=== PATIENT | female | born 1965 | race Caucasian/White ===

== ENCOUNTER 2018-04-21 09:34 | Inpatient (IN) ==
[2018-04-21 10:14] LABS: BASO# 0.02 X1000 (0.0-0.2); BASO% 0.3 % (0.0-0.8); EOS# 0.07 X1000 (0.0-0.7); EOS% 1.1 % (0.0-10.0); HEMATOCRIT 45.3 % (37.0-47.0); HEMOGLOBIN 15.1 g/dL (12.0-16.0); LYMPH# 1.91 X1000 (1.2-3.4); LYMPH% 29.3 % (20.5-51.1); MCH 32.1 PG (27-31); MCHC 33.3 g/dL (33-37); MCV 96.4 FL (81-99); MONO# 0.47 X1000 (0.11-0.59); MONO% 7.2 % (1.7-9.3); MPV 10.4 FL (7.4-10.4); NEUT# 4.05 X1000 (1.4-6.5); NEUT% 62.1 % (42.2-75.2); PLT 237 X1000 (130-400); RDW 12.6 % (11.5-14.5); WBC 6.52 X1000 (4.8-10.8)
[2018-04-21 10:18] LABS: URINE SOURCE CLEAN CATCH
[2018-04-21 10:19] LABS: BILIRUBIN URINE NEGATIVE (NEGATIVE); BLOOD URINE TRACE (NEGATIVE); COLOR STRAW; GLUCOSE URINE NEGATIVE (NEGATIVE); KETONE URINE NEGATIVE (NEGATIVE); LEUKOCYTES URINE NEGATIVE (NEGATIVE); NITRITE URINE NEGATIVE (NEGATIVE); PROTEIN URINE NEGATIVE (NEGATIVE); TURBIDITY URINE CLEAR (CLEAR); UROBILINOGEN URINE NORMAL (NORMAL)
[2018-04-21 10:27] LABS: UR EPITHELIAL CELLS <10 /HPF (<10); URINE BACTERIA NEGATIVE /HPF; URINE RBC <10 /HPF (<10); URINE WBC <10 /HPF (<10)
[2018-04-21 10:49] LABS: AGAP 4; ALB/GLOB RATIO 1.7; ALBUMIN 4.7 g/dL (3.5-5.0); ALKALINE PHOSPHATASE 84 U/L (32-104); BUN 18 mg/dL (8-22); CALCIUM 10.5 mg/dL (8.8-10.2); CHLORIDE 101 mmol/L (98-107); COSMO 281; CREATININE 0.8 mg/dL (0.5-0.9); ESTIMATED GFR > 60; GLUCOSE 99 mg/dL (70-104); GOT 30 U/L (10-30); GPT 23 U/L (10-36); POTASSIUM 4.5 mmol/L (3.5-5.1); SODIUM 140 mmol/L (136-145); TCO2 35 mmol/L (25-35); TOTAL BILIRUBIN 0.28 mg/dL (0.20-1.00); TOTAL PROTEIN 7.5 g/dL (6.3-8.3)
--- NOTE | 2018-04-21 11:53 | EKG Report ---
Test Performed on : 04/21/2018 09:51:19 AM Test Reason : Syncope Blood Pressure : / mmHG Vent. Rate : 048 BPM Atrial Rate : 048 BPM P-R Int : 142 ms QRS Dur : 084 ms QT Int : 440 ms P-R-T Axes : 036 022 047 degrees QTc Int : 393 ms Sinus bradycardia. Otherwise normal ECG No previous ECGs available Unconfirmed Result
[2018-04-21] MEDS ORDERED: NS 1,000 ML IV ONE ×2 (12:49→16:37)
--- NOTE | 2018-04-21 13:20 | Diag Imaging Result Doc PS360 ---
CT HEAD W/O CONTRAST - 04/21/2018 INDICATION: dizziness COMPARISON: 12/14/2012 FINDINGS: The ventricles and sulci are normal in size and contour. No intracranial mass or hemorrhage. The skull is intact. The sinuses mastoids and middle ears are clear. IMPRESSION: Negative exam. This exam was performed using automated exposure control, adjustment of mA or kV according to patient size, and/or use of iterative reconstruction technique Electronically signed by John Jones 04/21/2018 1:18 PM
--- NOTE | 2018-04-21 13:51 | Diag Imaging Result Doc PS360 ---
CHEST-2 VIEWS - 04/21/2018 INDICATION: bradycardia, dizziness COMPARISON: 11/02/2017 FINDINGS: The lungs are normally expanded and clear. Heart size and mediastinal contours are normal. No pneumothorax or pleural effusion. IMPRESSION: Negative exam. Electronically signed by John Jones 04/21/2018 1:48 PM
--- NOTE | 2018-04-21 15:58 | PROVIDER DOCUMENTATION ---
This chart was entered by Mavis العراقي Scribe, acting as scribe for Mackenzie Bauer CRNP. HPI-General Adult - General Chief Complaint: Near Syncope Stated Complaint: NEAR SYNCOPE,VERTIGO,VISUAL CHANGE Time Seen by Provider: 04/21/18 12:27 Source: patient Allergies/Adverse Reactions: Patient Allergies Allergy/AdvReac Type Severity Reaction Status Date / Time No Known Allergies Allergy Verified 04/21/18 09:47 Home Medications: Home Medication List Medication Instructions Recorded Confirmed Last Taken Type Simvastatin 1 tab PO DAILY 09/27/17 09/27/17 Unknown History - History of Present Illness -Gen Adult Nature of Presenting Problems: Patient is a 52 year old female who presents to the ED with dizziness, "feeling off balance" and nausea. Patient states symptoms started this morning around 0500. Patient denies cp, SOB, diaphoresis, or n/v. Symptoms exacerbated by position change. Pt denies any other symptoms and is non-toxic in appearance. Location of Pain/Injury: reports: none Pain Radiation: reports: no radiation Quality of Pain: reports: none Severity: reports: mild Onset/Duration: reports: this morning (0500) Timing: reports: still present Context/Activities at Onset: reports: light activity Modifying Factors: improves with: other (symptoms worse when patient goes from sitting to standing.) Associated Symptoms: reports: dizziness, nausea Similar Symptoms Previously?: No Recently seen or treated by another doctor?: No Review of Systems - Adult - REVIEW OF SYSTEMS - ADULT Constitutional: reports: no symptoms reported Eyes: reports: no symptoms reported Ears, Nose, Mouth & Throat: reports: no symptoms reported Cardiovascular: reports: no symptoms reported Respiratory: reports: no symptoms reported Gastrointestinal: reports: nausea. denies: abdominal pain, diarrhea, vomiting Genitourinary: reports: no symptoms reported Musculoskeletal: reports: no symptoms reported Integumentary: reports: no symptoms reported Neurological: reports: dizziness/vertigo (dizziness). denies: headache/ migraines, numbness, seizure, syncope Psychiatric: reports: no symptoms reported Endocrine: reports: no symptoms reported Hematologic/Lymphatic: reports: no symptoms reported Allergic/Immunologic: reports: no symptoms reported All Other Systems: Reviewed and Negative Past History - Adult - PAST MEDICAL HISTORY-ADULT Review of Records: reports: Old Records Reviewed, Nursing Assessment Review, Medications Reviewed, Social history reviewed & non-contributory. Major Childhood Illnesses: reports: denies history Cardiovascular: reports: hyperlipidemia Respiratory: reports: denies history Gastrointestinal: reports: denies history Obstetrical/Gynecological: reports: denies history Genitourinary: reports: denies history Musculoskeletal: reports: denies history Neurological: reports: denies history Psychiatric: reports: denies history Endocrine/Immune: reports: denies history Other Conditions: reports: denies history - PRIOR SURGERIES/PROCEDURES Surgical/Procedure History: reports: - IMMUNIZATION STATUS Childhood Immunizations: See Nurse Assessment Flu Vaccine: See Nurse Assessment - FAMILY HISTORY Family History: reviewed, not pertinent - SOCIAL HISTORY Smoking: cigarettes (former) Substance Use: alcohol Alcohol Use Frequency: occasionally Living Situation: family Physical Exam-General - PHYSICAL EXAM-ADULT Initial Vital Signs Reviewed: Yes - CONSTITUTIONAL General Appearance: alert, no apparent distress. negative: lethargic, slow to respond - EYES Eyes: PERRL/EOMI, pink conjunctivae - HEAD, EARS, NOSE, MOUTH & THROAT HENMT: normocephalic/atraumatic, moist mucous membranes - NECK Neck: full range of motion, supple, normal inspection - RESPIRATORY Respiratory: chest non-tender, lungs clear, normal breath sounds, no pleuratic chest pain, no respiratory distress, no accessory muscle use - CARDIOVASCULAR Cardiovascular: normal peripheral pulses, regular rate, rhythm, no edema, no gallop, no JVD, no murmur, bradycardia - GASTROINTESTINAL (ABDOMEN) Abdominal Exam: normal bowel sounds, non tender, soft, no organomegaly - MUSCULOSKELETAL Back Exam: normal inspection Extremity: normal range of motion, non-tender, normal inspection, other ( Assisted pt to standing position in treatment room and ambulated a few steps, pt became flushed and states s/s returned when she stood and walked.) - SKIN Integumentary: normal color, normal turgor, warm/dry. negative: cyanosis, diaphoresis, jaundice, mottled, pallor - NEUROLOGIC Neurologic: grossly normal, no motor/sensory deficits - PSYCHIATRIC Psych/Mental Status: normal mood/affect, normal thought content, normal thought process, oriented x 3 Progress - PLAN OF CARE/RESULTS Progress/Plan/Lab Results: Vital Signs - 8 hr 04/21/18 09:45 04/21/18 11:59 Temperature 98.7 F Pulse Rate 50 L Pulse Rate [Sitting] 48 L Pulse Rate [Standing] 66 Pulse Rate [Supine] 49 L Respiratory Rate 16 Blood Pressure 138/71 Blood Pressure [Sitting] 154/68 Blood Pressure [Standing] 150/80 Blood Pressure [Supine] 135/72 O2 Sat by Pulse Oximetry 98 Laboratory Results - last 24 hr 04/21/18 04/21/18 04/21/18 10:05 10:05 10:10 WBC 6.52 RBC 4.70 Hgb 15.1 Hct 45.3 MCV 96.4 MCH 32.1 H MCHC 33.3 RDW Std Deviation 12.6 Plt Count 237 MPV 10.4 Immature Gran % (Auto) 0.0 Neut % (Auto) 62.1 Lymph % (Auto) 29.3 [place] % (Auto) 7.2 Eos % (Auto) 1.1 Baso % (Auto) 0.3 Immature Gran # (Auto) 0.00 Neut # (Auto) 4.05 Lymph # (Auto) 1.91 [place] # (Auto) 0.47 Eos # (Auto) 0.07 Baso # (Auto) 0.02 Sodium 140 Potassium 4.5 Chloride 101 Carbon Dioxide 35 Anion Gap 4 BUN 18 Creatinine 0.8 Estimated GFR/1.73 m2 > 60 BUN/Creatinine Ratio 23 Glucose 99 Calculated Osmolality 281 Calcium 10.5 H Total Bilirubin 0.28 AST 30 ALT 23 Alkaline Phosphatase 84 Total Protein 7.5 Albumin 4.7 Globulin 2.8 Albumin/Globulin Ratio 1.7 Urine Source CLEAN CATCH Urine Color STRAW Urine Turbidity CLEAR Urine pH 7.0 Ur Specific [place] 1.000 Urine Protein NEGATIVE Ur Glucose (Stick) NEGATIVE Ur Ketones (Stick) NEGATIVE Urine Blood TRACE A Urine Nitrite NEGATIVE Urine Bilirubin NEGATIVE Urobilinogen Dipstick NORMAL Urine Leukocytes NEGATIVE Urine WBC (Auto) <10 Urine RBC (Auto) <10 U Epithel Cells (Auto) <10 Urine Bacteria (Auto) NEGATIVE Orders Category Date Time Status Cardiac Monitoring DIRECTED Care 04/21/18 12:49 Active Vital Signs Order Q30M Care 04/21/18 12:49 Active CHEST-2 VIEWS [RAD] Stat Exams 04/21/18 12:[address] HEAD W/O CONTRAST [CT] Stat Exams 04/21/18 12:48 Ordered CBC WITH DIFF [HEME] Stat Lab 04/21/18 10:05 Completed COMPREHENSIVE METABOLIC PANEL [CHEM] Stat Lab 04/21/18 10:05 Completed MAGNESIUM [CHEM] Stat Lab 04/21/18 10:05 Received TROPONIN T Stat Lab 04/21/18 10:05 Received URINALYSIS [URINALYSIS] Stat Lab 04/21/18 10:10 Completed 0.9% Sodium Chloride Inj [Ns] 1,000 ml Med 04/21/18 12:49 Active IV 999 mls/hr EKG [EKG] Stat Ther 04/21/18 09:49 Draft Discussed admission plan with pt who is in agreement. 1528- Leandro [facility] SURGICAL SALES REPRESENTATIVE called back and asked that I consult cardiology before admit decision is made. Dr. Anaya paged. Dr. Anaya states no need for pacemaker and that after pt has a treadmill test and thyroid studies she could probably follow up outpatient. Instructed me to obtain treadmill test from the ED. 1551- Informed Leandro that Dr. Anaya stated there is no need for pacemaker at this time. Attempted to call Dr. Mari and he is no longer in the office per office staff. Result Diagrams: 04/21/18 10:05 04/21/18 10:05 - EKG 1 Time of EKG reading by physician:: 09:51 EKG Read and Signed by:: Mackenzie Bauer EKG Interpretation (*Must complete 3 of following elements*): Abnormal Rate: 48 Rhythm: sinus bradycardia OR Interval: normal Comments: otherwise normal ECG - XRAY 1 XRAY Study: Chest ([facility] [address], [address], [place] [address] Department of Imaging Patient: LINN GAY Date: #: [id number] : 1965ADM Status: REG ERAt#: [id number] Age/Sex: 52/FRoom/Bed: Loc: ED Ordering Physician: Mackenzie Bauer Family Physician: Uche Mari MD Reason for Procedure: bradycardia, dizziness ___ Signed CHEST-2 VIEWS - 04/21/2018 INDICATION: bradycardia, dizziness COMPARISON: 11/02/2017 FINDINGS: The lungs are normally expanded and clear. Heart size and mediastinal contours are normal. No pneumothorax or pleural effusion. IMPRESSION: Negative exam. Electronically signed by John Jones 04/21/2018 1:48 PM 04/21/18 1348 Interpreting Physician: John Jones MD Dictated Date/Time: 04/21/18 1348 cc: Mackenzie Bauer; Uche Mari MD) - CT/MRI 1 CT Study: Head ([facility] [address], [address], [place] [address] Department of Imaging Patient: LINN GAY Date: MR#: [id number] : 1965ADM [id number] Age/Sex: 52/FRoom/Bed: Loc: ED Ordering Physician: Mackenzie Bauer Family Physician: Uche Mari MD Reason for Procedure: dizziness Signed CT HEAD W/O CONTRAST - 04/21/2018 INDICATION: dizziness COMPARISON: 12/14/2012 FINDINGS: The ventricles and sulci are normal in size and contour. No intracranial mass or hemorrhage. The skull is intact. The sinuses mastoids and middle ears are clear. IMPRESSION: Negative exam. This exam was performed using automated exposure control, adjustment of mA or kV according to patient size, and/or use of iterative reconstruction technique Electronically signed by John Jones 04/21/2018 1:18 PM 04/21/18 1318 Interpreting Physician: John Jones MD Dictated Date/Time: 04/21/18 1317 cc: Mackenzie Bauer; Uche Mari MD) - CONSULTS/PCP/HOSPITALIST Notification #1 *Consult/PCP/Hospitalist*: LICO Reeves Time Discussed: 15:21 Consult Disposition: Admit (Admit to Dr. Villafuerte) #2 Consult: Dr. Anaya Time Discussed: 15:35 Consult Disposition: other (Md stats to add thyroid studies and that pt does not need pacemaker at this time. Instructed me to do a treadmill test from the ED.) Departure - Departure Date of Disposition Decision: 04/21/18 Time of Disposition Decision: 15:21 DIAGNOSIS: Symptomatic bradycardia Disposition: ADMITTED INPATIENT 09 Certified Medical Emergency: Emergent Condition: Stable Referrals and Follow-Ups: Uche Mari MD [Primary Care Provider] - - Critical Care Note This patient required my direct & personal management of CC.: No Attestation - Physician/ RODRIGUE Attestation Patient care was provided by Advanced Practice Provider:: Yes Advanced Practice Provider:: Mackenzie Bauer Advanced Practice Provider documentation review:: The Mid-level provider documentation, treatment plan and medical decision making was reviewed by the physician who agrees with all treatment and medical decision making by the MLP. The physician spent face to face time with patient:: No Advanced Practice Provider documentation review:: Supervising physician onsite and consulted in the evaluation and care of this patient. The physician did not have a face to face encounter with the patient. This chart was documented by the indicated scribe, (Mavis العراقي Scribe) and accurately reflects the services I performed and decisions made by me, Mackenzie Bauer CRNP, as attested by the provider's signature.
[2018-04-21 16:09] LABS: FREE T4 1.34 ng/dL (0.93-1.70); TSH 0.94 uIUmL (0.27-4.20)
[2018-04-21] MEDS ORDERED: LOVENOX SUBQ SCH (17:00)
[2018-04-21] MEDS: ASPIRIN PO SCH (18:31)
--- NOTE | 2018-04-21 18:58 | HISTORY AND PHYSICAL ---
PRIMARY CARE PHYSICIAN: Dr. Uche Mari. CHIEF COMPLAINT: Dizziness. HISTORY OF PRESENT ILLNESS: Ms. Orellana is a 52-year-old female with a history of carotid artery stenosis. She has been in her usual state of health until 1 o'clock this morning. While she was at work, she started experiencing dizziness, worse with standing. She originally attributed this to hot flashes, but they continued to increase in intensity despite almost anything she did. She initially tried to eat a tangerine because she thought she might be hypoglycemic. This did improve the symptoms for about 5 minutes, but then she continued to have the dizziness. At no time did she experience chest pain, but she did have some nausea without vomiting. She denies any shortness of breath or fever. No chills. She has not had any dysuria or diarrhea. She denies lower extremity edema, orthopnea, PND, or exertional angina. She originally went to Dr. Mari's office early this morning and then was sent directly over to our ER. In the ER she was noted to be bradycardic in the 40s. EKG showed normal sinus at a bradycardic rate of 48. She denies taking any rate-blocking medications and again denies any chest pain. Head CT was done, which did not show anything acute, and her chest x-ray is negative. Currently her heart rate has rebounded back to 60 exactly. We will now admit her for further treatment and evaluation. PAST MEDICAL HISTORY: 1. Carotid artery stenosis bilaterally in the range of 30% to 50%, on simvastatin. 2. Chronic back pain. 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 She has had 2 C-sections. SOCIAL HISTORY: She quit smoking 8 years ago. Was about a 98-pvlj-xyre smoker. Denies drug use. She will drink a glass of wine once or twice a month. 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 FAMILY HISTORY: Father is apparently from alcoholism or drug addiction. Her mother has 2 "leaky valves" in her heart, unsure which or the severity of these. REVIEW OF SYSTEMS: A thorough 14-point review of systems was obtained and found to be negative with the exception of the HPI. PHYSICAL EXAMINATION: VITAL SIGNS: Blood pressure 138/71, heart rate 60, respiratory rate 16, O2 saturation 98% on room air, temperature 98.7. GENERAL: This is a well-developed, well-nourished female lying in the hospital bed in no acute distress. NEUROLOGIC: Awake, alert and oriented. Follows commands, without focal deficits. HEENT: Head is atraumatic and normocephalic. Her pupils are equal, round, and reactive to light. Her oral mucosa is moist. Her trachea is midline. There is no JVD. No carotid bruits. CARDIOVASCULAR: Regular rate and rhythm. S1 and S2 noted. There is a 2/6 diastolic murmur noted. GI: Soft, nondistended, nontender. Bowel sounds are active. EXTREMITIES: No edema. Pulses 2+ bilaterally. DIAGNOSTIC DATA: Head CT is negative. Chest x-ray is negative. EKG: Sinus bradycardia, rate of 48 beats per minute. There is a very slight first-degree AV block and no acute ST or T changes. LABORATORY DATA: Reviewed and negative. Her calcium is 10.5. Glucose is 112. Otherwise, there are no other abnormalities. ASSESSMENT/PLAN: 1. Symptomatic bradycardia: Will admit the patient and consult Cardiology. Will continue to trend her cardiac enzymes, check an echocardiogram, check her thyroid function, B12 and folate, and monitor her telemetry closely. 2. Carotid artery stenosis. She had bilateral carotid Doppler studies done on 11/09/2017, which showed right % stenosis 0-39, left 40-59. There has been no progression since 01/09/2016, per the report. We will make sure she is on aspirin. 3. Hyperlipidemia. Will continue her statin. Check a lipid panel in the morning. 4. Deep venous thrombosis prophylaxis with Lovenox. 5. Further recommendations to follow. Dictated by CRISTIANA Nolen for Basilio Stern MD cc: CRISTIANA Nolen MD Michael C. Donham, MD
--- NOTE | 2018-04-22 07:11 | EKG Report ---
Test Performed on : 04/22/2018 07:07:37 AM Test Reason : bradycardia Blood Pressure : / mmHG Vent. Rate : 071 BPM Atrial Rate : 071 BPM P-R Int : 208 ms QRS Dur : 084 ms QT Int : 392 ms P-R-T Axes : 043 -02 031 degrees QTc Int : 425 ms Normal sinus rhythm. Normal ECG When compared with ECG of 21-APR-2018 09:51, (Unconfirmed) Vent. rate has increased BY 23 BPM Confirmed by Heena HUERTA, Yazan Restrepo ([id number]) on 04/22/2018 7:16:05 AM
[2018-04-22] MEDS ORDERED: ZOCOR PO SCH (09:00)
[2018-04-22] MEDS: ASPIRIN PO SCH (09:25)
[2018-04-22 10:09] LABS: AGAP 10; BUN 15 mg/dL (8-22); CALCIUM 9.1 mg/dL (8.8-10.2); CHLORIDE 106 mmol/L (98-107); COSMO 283; CREATININE 0.7 mg/dL (0.5-0.9); ESTIMATED GFR > 60; GLUCOSE 122 mg/dL (70-104); POTASSIUM 4.3 mmol/L (3.5-5.1); SODIUM 141 mmol/L (136-145); TCO2 25 mmol/L (25-35)
[2018-04-22 10:43] LABS: HEMATOCRIT 46.8 % (37.0-47.0); HEMOGLOBIN 15.9 g/dL (12.0-16.0); MCH 33.2 PG (27-31); MCV 97.7 FL (81-99); MPV 11.2 FL (7.4-10.4); RBC 4.79 XMIL (4.2-5.4); RDW 13.1 % (11.5-14.5); WBC 6.79 X1000 (4.8-10.8)
[2018-04-22 11:56] VITALS: BP 131/73
--- NOTE | 2018-04-22 15:17 | ECHO REPORT ---
ORDER DATE: 04/21/2018 INDICATION FOR THE STUDY: Bradycardia. FINDINGS: 1. The right atrium appears normal in size. 2. Trace tricuspid regurgitation. RV systolic pressure 27. 3. Normal RV size and systolic function. 4. Trace pulmonic insufficiency. 5. Normal left atrial size with a dimension of 3.9 cm. 6. No mitral valve prolapse. Trace mitral regurgitation. 7. Normal LV size, end-diastolic dimension of 4.7. Normal wall thicknesses with a posterior and interventricular septal wall thickness of 0.8 cm each. Normal LV systolic function. Estimated EF of 60% with normal wall motion. 8. Aortic valve opens well. It is trileaflet. No evidence of stenosis or insufficiency. 9. Aorta appears normal in visualized segments. 10. No pericardial effusion seen. 11. Patient appeared to be in sinus rhythm during the course of the study. The majority of the heart rates were in the 50s to 60s with occasional heart rates in the upper 40s. cc: MD Lorenzo Gomez CRNP
--- NOTE | 2018-04-22 16:11 | Diag Imaging Result Document ---
PROCEDURE NAME: MYOCARDIAL PERF SCAN, STR/REST - 04/22/2018 INDICATION: Dizziness, bradycardia. PROCEDURES PERFORMED: 1. Tay protocol stress. 2. One-day stress rest myocardial perfusion imaging. PROCEDURE DETAIL: Ms. Orellana was brought to the nuclear laboratory and had a resting study with injection of 14.4 mCi of technetium-99m sestamibi with usual imaging protocol utilized. She subsequently was brought back and had a Tay protocol stress and was checked with 35.9 mCi of technetium-99m sestamibi with usual imaging protocol utilized. FINDINGS: TAY PROTOCOL STRESS RESULTS: 1. Baseline EKG shows sinus rhythm at 82 beats per minute. 2. Patient exercised for a total of 8 minutes 1 second achieving peak heart rate of 146. This was 87% of age predicted max. She achieved late stage 3 of the Tay protocol. Exercise capacity was of 118% of age and sex predicted exercise capacity. 3. Appropriate blood pressure response to exercise. 4. Test was terminated due to fatigue. 5. No anginal complaints occurred during the course of study. 6. No significant ischemic related EKG changes or significant arrhythmias occurred during the course of the study. PERFUSION IMAGING RESULTS: 1. No evidence of abnormal extracardiac uptake. 2. TID ratio 0.96. 3. Perfusion imaging demonstrates normal homogenous uptake of radiotracer throughout the myocardial segments. 4. Normal ejection fraction of 81% on stress, 79% on rest. End-diastolic volume on stress was 89, end systolic volume 17. Normal wall motion was noted on this study. cc: MD Shahriar Gomez MD
--- NOTE | 2018-04-22 20:14 | CARDIOLOGY CONSULTATION ---
DATE: 04/22/2018 CONSULTATION REQUESTED BY: Hospitalist Service. PRIMARY PHYSICIAN: Dr. Mari. COMPLAINT: Dizziness, vertigo, unsteadiness. HISTORY: Mrs. Orellana is a 52-year-old female who states that yesterday about 5 o'clock in the morning she started developing vertigo like symptoms. She was not steady on her feet. Her head was spinning and she felt nauseous. She went to see Dr. Mari who saw her and sent her to the ER like at 9 o'clock in the morning. The patient continued to have the symptoms until about 5 p.m. in the afternoon and then subsided. When she was 1st seen in the ER the patient had bradycardia and they got concerned about it and they decided to consult Cardiology for it. The patient denies having syncope, palpitation, chest pain, dyspnea, edema, claudication. 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 PAST MEDICAL HISTORY: Positive for hyperlipidemia. She was found to have some carotid artery atherosclerosis. She has chronic back pain. SURGICAL HISTORY: She had 2 C-sections. She has had a repair at of a congenital kidney defect. SOCIAL HISTORY: She is . She works full-time at [employer]. She used to be a smoker but she quit about 8 years ago. Occasional alcohol. No illicit drugs. FAMILY HISTORY: Father negative for heart disease. Mother had valve disease. ALLERGIES: Negative. MEDICATIONS: Simvastatin. REVIEW OF SYSTEMS: The patient has had previous vertigo about 10 years ago when she went to an amusement park and took several rides. She was seen at that time by ENT and they did all kinds of tests. Eventually she got over that after 2 weeks and it has not recurred until this particular episode that appeared to have been much worse than the original 1 from 10 years ago. No other positives on the multiple system review. PHYSICAL EXAMINATION: Blood pressure 112/95, temperature 98 degrees, pulse 72, respirations 18. She is awake, alert, oriented, in no distress.HEENT: Unremarkable. Chest: Clear to auscultation, percussion. Heart: Sounds regular and rhythmic. Abdomen: Nontender. No masses. No hepatomegaly. Extremities: Show good pulses. No edema. Neurological: Normal. Cranial nerves normal. Gait is normal now. She was able to walk on the treadmill today. DATA: Chest x-ray shows no acute disease. EKG shows sinus rhythm, no acute abnormalities. An echocardiogram has been done and is basically normal. A treadmill exercise stress test was done. She demonstrates very good exercise capacity about 18% above average for age and gender. No ischemia noted. She walked for 8 minutes on the treadmill. Perfusion images came back normal. Her BUN, creatinine, sodium, potassium, magnesium, CPK troponins all of them negative. IMPRESSION: 1. Patient with essentially vertigo. 2. Bradycardia. This is spurious and it does not indicate presence of sick sinus syndrome. The patient has very good exercise capacity on the treadmill. 3. History of carotid artery disease with hyperlipidemia being treated with simvastatin. 4. Chronic back pain. RECOMMENDATION: After reviewing all her tests and examining the patient, I believe that everything that she had was related to episode of vertigo. I do not find any reason to suspect that there is cardiac pathology here and from my perspective this patient can be discharged home with instructions to follow up with her primary doctor and perhaps with an ENT specialist if this condition recurs. I am not suggesting any changes to her therapy other than follow a healthy lifestyle and try to make sure that her lipid panel is optimally controlled. Thank you for asking us to participate in her evaluation. cc: Shahriar Gamble MD [facility]
--- NOTE | 2018-04-23 17:20 | DISCHARGE SUMMARY ---
ADMISSION DATE: 04/21/2018 DISCHARGE DATE: 04/22/2018 DISCHARGE DIAGNOSIS: 1. Symptomatic bradycardia. 2. Carotid artery stenosis. 3. Hyperlipidemia. HOSPITAL COURSE: A 52-year-old female with a past medical history of carotid artery stenosis, she has been in her usual state of health until 1 o'clock the morning of admission on 04/21/2018 1 p.m. while she was at work, she started experiencing dizziness, worse with standing, initially she tried to eat some fruit because she thought she might be hypoglycemic and the symptoms improved around 5 minutes later but she continue with dizziness. She also had some nausea without vomiting. She denies any shortness of breath. No fever, no chills. No dysuria or diarrhea. No lower extremity edema, orthopnea, paroxysmal nocturnal dyspnea or exertional angina. She went to her primary care doctor and they noted the patient to be bradycardic in the 40s, they send this patient to the ER. EKG showed normal sinus with bradycardia, the rate was around 48, she is not taking medication that can cause these kind of problems, TSH was normal . CT scan was done and did not show anything acute. Chest x-ray was negative as well but then the heart rate started to normalize and she basically spent most of the night with the heart rate in the normal range of limits. Echocardiogram did not show any acute abnormality. She has an ejection fraction of at least 60%, we did a stress test that did not show any evidence of abnormal extracardiac uptake, normal ejection fraction, normal wall motion was noted on this study. Patient evaluated by Dr. Gamble and we feel that this patient can be discharged home safely. Dr. Gamble talked to the patient and as per the patient he has suggested to go to the ENT if this problem happened again, this could be related to vertigo but we do not believe this is related to a cardiac condition. PHYSICAL EXAMINATION: Vital signs: Temperature 98, pulse 80, respiratory 15, blood pressure 131/73, oxygen saturation 97 on room air. HEENT: Head normocephalic. No trauma. PERRLA. Neck: Supple. No JVD. No masses. Central trachea. Chest: Clear to auscultation. No wheezing, no rales. Abdomen: Soft, nontender, nondistended. No hepatosplenomegaly. Extremities: No edema, no clubbing, no cyanosis. Neurological: The patient is alert and oriented x3. No focal deficits. LABORATORY: WBC 6.7, hemoglobin 15.9, hematocrit 46.8, platelets 192,000, sodium 141, potassium 4.3, chloride 106, bicarbonate 25, BUN 15, creatinine 0.7, glucose 122, calcium 9.1, magnesium 2. Troponins negative x3. CK normal. TSH 1.3. DISCHARGE MEDICATIONS: Simvastatin 20 mg p.o. daily. FOLLOWUP: With her primary care doctor in 1 or 2 weeks, Cardiology Department has suggested to go to the ENT if this problem happens again. TIME SPENT: 35 minutes. cc: Basilio Stern MD
== END 2018-04-22 16:32 | disposition home or self-care (01) | DRG 310 ==
LOC: ED 09:34 → EDIPHOLD 09:35 → 4N 04-22 11:50
PROVIDERS: ATTEND Internal Medicine
CPT/HCPCS: 70450; 71020; 71046; 78452; 80048; 80053; 80061; 81001; 82550; 82607; 82746; 82948; 83721; 83735; 84439; 84443; 84484; 85025; 85027; 93005; 93017; 93306; 96372; 99285; A9270; A9500; J1650; J7030; XXXXX